=== PATIENT | male | born 1965 | race Caucasian/White ===

== ENCOUNTER 2017-04-17 05:49 | Day surgery (SDC) | payer OTHER ==
[~2017-04-17] VITALS: Ht 175.3 cm; Wt 86.4 kg
[2017-04-17] VITALS (7 sets, daily range): BP systolic 125–157; BP diastolic 82–95; PULSE 50–73; RESP 12–15; O2SAT 94–100
[~2017-04-17 05:49] MED LIST: ASPI-973 PO; ATOR20TA PO; Lactated Ringer's 1,000 ML IV SCH; Levofloxacin 500 mg/100 mL D5W IV SCH
[2017-04-17] MEDS ORDERED: Ondansetron 2 mg/mL 2 mL Inj ONE (05:50)
[2017-04-17] MEDS ORDERED: Propofol 10,000 mCg/mL 20 mL Inj ONE (05:50)
[2017-04-17] MEDS ORDERED: Glycopyrrolate 0.2 MG/ML 1mL Inj ONE (05:50)
[2017-04-17] MEDS ORDERED: Neostigmine 1 mg/mL 10 mL Inj ONE (05:50)
[2017-04-17] MEDS ORDERED: fentaNYL-PF 50 mCg/mL 2 mL Inj ONE (05:50)
[2017-04-17] MEDS ORDERED: Dexamethasone 4 mg/mL Inj ONE (05:50)
[2017-04-17] MEDS ORDERED: Rocuronium 10 mg/mL 5 mL Inj ONE (05:50)
[2017-04-17] MEDS ORDERED: levoFLOXacin 500 mg/100 mL D5W Premix IV ONE (05:56)
[2017-04-17] MEDS ORDERED: Lactated Ringer's 1,000 ML IV ONE (06:20)
[2017-04-17] MEDS ORDERED: Lactated Ringer's 500 ML IV PRN (07:23)
[2017-04-17] MEDS ORDERED: Lactated Ringer's 1,000 ML IV SCH (07:23)
--- NOTE | 2017-04-17 07:23 | PCM.HPANE ---
Patient Data Surgeon Admitting Provider: Attending Provider:Sylvia Velazquez MD Primary Care Physician:Pancho Vazquez DO Other Provider:Cleo Champion Anesthesia Reason for Visit Left Kidney Stone Ht/WT & BMI Height (Feet): 5 Height (Inches): 9.00 Weight (Kilograms): 86.400 Body Mass Index 28.00 Allergies Coded Allergies: No Known Allergies (Unverified , 04/15/17) Past Anesthesia History Anesthesia History: Denies:: Abnormal Airway, Anesthesia Reactions, Difficult Intubation, Fam Anesthesia Reaction, Fam Malignant Hypertherm, Malignant Hyperthermia Diabetes History Hx Diabetes?: No MRSA MRSA: Yes (2005) Medications Blood Thinner: Aspirin Last Dose Blood Thinner: Apr 08, 2017 Home Meds Incl Beta Noemi: No Reported Medications Atorvastatin (Lipitor)20 Mg [id number] Mg PO DAILY Ref 0 04/15/17 Aspirin 81 Mg [id number] Mg PO DAILY Ref 0 04/15/17 History History of ENT Problems?: No HEENT History: Denies:: Abnormal Airway Cataracts Difficult Intubation Dysphagia Glaucoma Hearing Problem Sinus Problem TMJ Denture Type: None Teeth Condition: Within Normal Limits Hx of Heart Problems?: No Cardiovascular History: Denies:: AICD Abdominal Aortic Aneurism Atrial Fibrillation Cardiac Surgery Chest Pain Congestive Heart Failure Coronary Artery Disease Edema Heart Murmur Hypertension Irregular Heartbeat Pacemaker Peripheral Vascular Rheumatic Fever Thrombophlebitis Valvular Heart Disease Hx of Respiratory Problem?: Yes Respiratory History: Positive for:: Use of C-PAP Machine Hx Neurologic Problems?: No Hx of GI Problems?: No Hx of Problems?: Yes Genitourinary History: Positive for:: Kidney Stones Denies:: HX of Hemodialysis Urinary Tract Infection HX of Peritoneal Dialysis: No Male Hx: Denies:: Prostate Problems (bhp) Scrotal Mass Testicular Surgery Skin History: Denies:: History Skin Disorders? Pressure Ulcers Hx Musculoskeletal Problems?: No Musculoskeletal History: Denies:: Back Injury Degenerative Joint Fibromyalgia Joint Replacement Musculoskeletal Trauma Myasthenia Gravis Osteoarthritis Rheumatoid Arthritis Systemic Lupus Hx of Psycho/Social Problems?: No Hx Surgeries?: Yes (COLONOSCOPY) Hx Any Other Health Problems?: Yes Other History: Denies:: Cancer Endocrine Disease Hospitalization Thyroid Disease History Blood Transfusions: Positive for:: Accept Blood Products? Denies:: Blood Transfusions Hx Diabetes: No Hx Alcohol Use: Yes (SOCIAL)Hx Substance Use: No Stop/Bang S-Snoring: Do You Snore Loudly: Yes T-Tired: feel tired, fatigued: No O-Obsered: Observed not breath: No P-Blood Pressure: treated: No B- Body Mass Index > 35 kg/m2: No A- Age over 50: Yes N- Neck Large Circumference: No G- Gender Male: Yes EDER Total Score: 3 EDER Risk Assessment: High Risk, =/>3 Yes EDER Category 4 OutPt Procedure: Yes Risk Assessment Category Category 1A: Patient has history of documented sleep apnea, and HAS NOT received any narcotic, sedative or anesthesia administration during this stay. Category 1B: Patient has history of documented sleep apnea, and HAS received any narcotic , sedative or anesthesia administration during this stay Category 2: Patient has SUSPECTED Obstructive Sleep Apnea, and HAS received any narcotic , sedative or anesthesia administration during this stay. Category 3: Patient has SUSPECTED Obstructive Sleep Apnea and HAS NOT received narcotic, sedative or anesthesia administration during this stay. Category 4: Outpatient in Procedural Areas with known sleep apnea or who screen positive for High Risk via the STOP/BANG questionnaire. Exam Exam Vital Signs Vital Signs Date Time Temp Pulse Resp B/P Pulse Ox O2 Delivery O2 Flow Rate FiO2 04/17/17 06:37 36.2 61 14 125/95 98 Room Air General Appearance: Alert HEENT/AIRWAY: MP 2, Neck Movement (from, 3 fb) Lungs: Clear to Auscultation Heart: Regular Rate/Rhythm Meds/Labs/Diagnostics Admission Meds Current Medications Lactated Ringer's (Lr) 1,000 ml @ ud STK-MED ONCE IV Last administered on t 06:20; Start 04/17/17 at 06:20; Stop 04/17/17 at 06:36; Status DC Plan Impression Patient chart reviewed, patient interviewed and anesthestic plan with risks, benefits, and alternatives discussed, and informed consent obtained. NPO per Anesth. Guidelines: Yes ASA Physical Status: ASA2 Mod Systemic Disease Anesthetic Plan: GA Bene/Risks/Altern/Consents: Yes HP Complete Prior to Induction: Yes Sanya Alcantar MD Apr 17, 2017 07:22
[2017-04-17] MEDS ORDERED: EPHEDrine Sulfate 50 mg/mL Inj IVPUSH PRN (07:25)
[2017-04-17] MEDS ORDERED: Ondansetron 2 mg/mL 2 mL Inj IVPUSH PRN (07:25)
[2017-04-17] MEDS ORDERED: MetoCLOpramide 5 mg/mL 2 mL Inj IVPUSH PRN (07:25)
[2017-04-17] MEDS ORDERED: fentaNYL-PF 50 mCg/mL 2 mL Inj IVPUSH PRN (07:25)
[2017-04-17] MEDS ORDERED: Phenylephrine 10,000 mCg/mL Inj IVPUSH PRN (07:25)
[2017-04-17] MEDS ORDERED: Dexamethasone 4 mg/mL Inj IVPUSH PRN (07:25)
[2017-04-17] MEDS ORDERED: HYDROmorphone 1 mg/mL Inj IVPUSH PRN (07:25)
[2017-04-17] MEDS ORDERED: Belladonna Alk-Opium 60 mg Rectal Suppository RECTAL ONE (08:51)
[2017-04-17] MEDS ORDERED: HYDROcodone-APAP 5-325 mg Tablet PO PRN (09:20)
[2017-04-17] MEDS ORDERED: Phenazopyridine 97.5 mg Tablet PO PRN (09:20)
[2017-04-17] MEDS ORDERED: Ondansetron 8 mg ODT Tablet PO PRN (09:20)
--- NOTE | 2017-04-17 09:47 | PCM.ANEP1 ---
Post Anesthesia PACU Phase 1 Assessment Vital Signs Vital Signs Date Time Temp Pulse Resp B/P Pulse Ox O2 Delivery O2 Flow Rate FiO2 04/17/17 09:42 36 57 14 157/82 94 Room Air 04/17/17 09:39 50 12 150/84 97 Room Air 04/17/17 09:33 61 13 132/88 96 Room Air 04/17/17 09:26 73 13 157/87 100 Simple Mask 10 04/17/17 09:22 36.3 55 15 146/88 100 Simple Mask 10 04/17/17 06:37 36.2 61 14 125/95 98 Room Air Anesthetic Administered: GA Level of Alertness: Awake, talking MENG's with Equal Strength: Yes Pain: No Nausea or Vomiting: No CV Function & Hydration Stable: Yes Airway Device: Oxygen Delivery: Simple Mask Lungs: Clear to Auscultation Dermatome Level: Full Sensation PACU Phase 2 Assessment Complications: No Follow up Care: N/A Patient Instructions Provided: N/A Sanya Alcantar MD Apr 17, 2017 09:47
--- NOTE | 2017-04-17 12:20 | DRSVH ---
PROCEDURE: X-RAY RETROGRADE UROGRAPHY INDICATIONS: LEFT KIDNEY STONE TECHNIQUE: 7 intra-operative images acquired by the Urology service. COMPARISON: Outside Film, CT, CT ABD PELVIS W CON, 02/12/2017, 13:03. FINDINGS: There is mild blunting of the upper pole calyces of the left kidney indicating mild hydron ephrosis. Roughly 1.5 cm intraluminal filling defect involves the left renal pelvis as well as sever al additional smaller intraluminal filling defects within the mid to lower pole calyx suspicious for retained stones. Opacified portions of the ureter also demonstrate several small intraluminal fillin g defects proximally. IMPRESSION: 1. Multiple intraluminal filling defects within the left renal collecting system and proximal ureter suspicious for retained stones. Correlate with real-time examination. 2. Ureteral stent placed. Dictated by: Frederick LIAO Interpreted: Brando Shine MD on 04/17/2017 at 9:35 Approved by: Sky Shine M.D. on 04/17/2017 at 12:18
--- NOTE | 2017-04-18 10:27 | OP ---
[address] [address] OPERATIVE REPORT PATIENT: GARRETT ACOSTA : 1965 MR#: [id number] ADMIT: 04/17/2017 JOB ID: [id number] DATE OF SURGERY: 04/17/2017 SURGEON: Sylvia Velazquez M.D. PROCEDURE: Cystoscopy with left-sided ureteroscopy, diagnostic left-sided retrograde pyelogram, left-sided ureteral balloon dilation, and left-sided double-J stent placement. ANESTHESIA: General. PREOPERATIVE DIAGNOSIS(ES): Left-sided renal calculi, obstructing solitary calyx with stenotic infundibulum. POSTOPERATIVE DIAGNOSIS(ES): Left-sided renal calculi, obstructing solitary calyx with stenotic infundibulum. INDICATIONS: The patient is a 51-year-old gentleman with a history of episodic mild, sometimes moderate left-sided low back pain. On evaluation found to have a collection of stones in a solitary calyx of the left kidney which appears to be obstructed by the stones which are present only in the solitary calyx. He was counseled about the unusual nature of his issue and risks/benefits of various treatment options. We had discussed shock wave lithotripsy, but feel likely that his infundibulum is narrowed, otherwise stones would have passed earlier on. Therefore, suspect that this would not result in good stone treatment. However, he was given the option of that versus attempted ureteroscopy with caveat that his ureter was undilated and we may not be able to reach the kidney safely at the first attempt. He elected ureteroscopy and was counseled appropriately. PROCEDURE IN DETAIL: After appropriate informed consent was obtained, the patient was brought to the operating room. Received IV antibiotics prior to onset of the procedure. SCDs were placed. Adequate general anesthesia induced. She was carefully placed in the dorsal position. All pressure points carefully padded. Cleaned, prepped, and draped in the usual sterile fashion. Rigid scope was introduced into the patient's bladder. Showed it to be normal in appearance and mildly high bladder neck. Left-sided ureteral orifice was cannulated and a retrograde pyelogram revealed a normal undilated caliber ureter with no filling defects and the location of the stone was easily seen prior to contrast and afterwards as well. We advanced a guidewire up into the kidney and then and a dual-lumen catheter over this. This did not pass due to the narrow nature of his distal ureter. We used a 15-[place] outer diameter balloon dilator to dilate up to the level of the SI joint. Still had a little bit more difficulty. However, once we got past this, there was a wider area of the ureter and we were able to get the access sheath up to near the ureteropelvic junction where there was again a narrower area. We did dilate this. There was some minimal contrast extravasation after dilation and we were able to successfully get up into the renal pelvis. We used a 14fr outer diameter sheath leaving the safety wire in place outside of the sheath. We could see the stone. However, given the need for dilation to get up and the minimal contrast extravasation, we elected not to go ahead and proceed and work on the stone given the need for ureteroscopy under positive pressure. We used a safety wire which was left in place throughout the course of the case to place an 8-[place] by 26 cm double-J stent over the wire through the cystoscope into good position with a curl in the renal pelvis and a curl in patient's bladder. The patient's bladder itself was drained. Some clots were evacuated from the ureteral dilation of the distal portion of it. The bladder was drained. He tolerated this well, was awakened, taken in stable condition to the postanesthesia care unit. [place]
[2017-04-18] MEDS ORDERED: HYDR-4003 PO (17:14)
[2017-04-18] MEDS ORDERED: PHEN-684 PO (17:14)
== END 2017-04-17 23:59 | disposition home or self-care (01) ==
LOC: SAS 05:49
PROVIDERS: ATTEND Urology
DX: N20.0 Calculus of kidney (principal); N28.89 Other specified disorders of kidney and ureter; Z79.82 Long term (current) use of aspirin; Z86.14 Personal history of Methicillin resistant Staphylococcus aureus infection
CPT/HCPCS: 52332; 52343; 74420; C2617; J1100; J1885; J2250; J2405; J2710; J3010; J7120; Q9967

== ENCOUNTER → 2017-04-26 | Day surgery (SDC) | payer OTHER ==
[~2017-04-26] VITALS: Ht 175.3 cm; Wt 83.6 kg
[2017-04-26] VITALS (12 sets, daily range): BP systolic 116–145; BP diastolic 77–98; PULSE 66–100; RESP 10–18; O2SAT 95–99
[~2017-04-26] MED LIST changes: +Belladonna Alk-Opium 60 mg Rectal Suppository RECTAL ONE; +Dexamethasone 4 mg/mL Inj IVPUSH PRN; +Dexamethasone 4 mg/mL Inj ONE; +EPHEDrine Sulfate 50 mg/mL Inj IVPUSH PRN; +Glycopyrrolate 0.2 MG/ML 1mL Inj ONE; +HYDR-4003 PO; +HYDROcodone-APAP 5-325 mg Tablet PO PRN; +HYDROmorphone 1 mg/mL Inj IVPUSH PRN; +Ketamine 10 mg/mL 20 mL Inj ONE; +Labetalol 5 mg/mL 4 mL Inj IV PRN; +Lactated Ringer's 500 ML IV PRN; +Levofloxacin 500 mg/100 mL D5W IV ONE; -Levofloxacin 500 mg/100 mL D5W IV SCH; +MetoCLOpramide 5 mg/mL 2 mL Inj IVPUSH PRN; +Neostigmine 1 mg/mL 5 mL Inj ONE; +Ondansetron 2 mg/mL 2 mL Inj IVPUSH PRN; +Ondansetron 2 mg/mL 2 mL Inj ONE; +Ondansetron 8 mg ODT Tablet PO PRN; +PHEN-684 PO; +Phenazopyridine 97.5 mg Tablet PO PRN; +Phenylephrine 10,000 mCg/mL Inj IVPUSH PRN; +Propofol 10 mg/mL 20 mL Inj ONE; +Succinylcholine Chloride 20 mg/mL 5 mL Inj ONE; +fentaNYL-PF 50 mCg/mL 2 mL Inj ONE; +hydrALAZINE 20 mg/mL Inj IVPUSH PRN
[2017-04-26] MEDS: Lactated Ringer's 1,000 ML IV SCH ×2 (05:24→07:27)
--- NOTE | 2017-04-26 07:18 | PCM.HPANE ---
Patient Data Date of Service: Apr 26, 2017 Surgeon Admitting Provider: Attending Provider:Sylvia Velazquez MD Primary Care Physician:Kylee Other Provider:Cleo Champion Anesthesia Reason for Visit Left Kidney Stone Ht/WT & BMI Height (Feet): 5 Height (Inches): 9.00 Weight (Kilograms): 83.600 Body Mass Index 27.00 Allergies Coded Allergies: No Known Allergies (Unverified , 04/18/17) Past Anesthesia History Anesthesia History: Denies:: Abnormal Airway, Anesthesia Reactions, Difficult Intubation, Fam Anesthesia Reaction, Fam Malignant Hypertherm, Malignant Hyperthermia Diabetes History Hx Diabetes?: No MRSA MRSA: Yes (2005) Medications Blood Thinner: Aspirin Home Meds Incl Beta Noemi: No Reported Medications Phenazopyridine (Pyridium)200 Mg [id number] Mg PO TID PRN For Pain Ref 0 04/18/17 Hydrocodone-Acetaminophen 5-325 mg 1 Each Tablet1 Tablet PO Q4H PRN For Pain Ref 0 04/18/17 Atorvastatin (Lipitor)20 Mg [id number] Mg PO DAILY Ref 0 04/15/17 Aspirin 81 Mg [id number] Mg PO DAILY Ref 0 04/15/17 History History of ENT Problems?: No HEENT History: Denies:: Abnormal Airway Cataracts Difficult Intubation Dysphagia Hearing Problem Sinus Problem TMJ Denture Type: None Teeth Condition: Within Normal Limits Hx of Heart Problems?: No Cardiovascular History: Denies:: AICD Abdominal Aortic Aneurism Atrial Fibrillation Cardiac Surgery Chest Pain Congestive Heart Failure Edema Heart Murmur Hypertension Irregular Heartbeat Pacemaker Rheumatic Fever Thrombophlebitis Valvular Heart Disease Hx of Respiratory Problem?: Yes Respiratory History: Positive for:: Use of C-PAP Machine Hx Neurologic Problems?: No Neurological History: Denies:: CVA Multiple Sclerosis Parkinson's Disease Seizures Hx of GI Problems?: No Hx of Problems?: Yes Genitourinary History: Positive for:: Kidney Stones (left stone current admission problem- surg here 04/17) Denies:: HX of Hemodialysis Urinary Tract Infection HX of Peritoneal Dialysis: No Male Hx: Denies:: Prostate Problems (bhp) Scrotal Mass Testicular Surgery Skin History: Denies:: History Skin Disorders? Pressure Ulcers Hx Musculoskeletal Problems?: No Musculoskeletal History: Denies:: Back Injury Degenerative Joint Joint Replacement Musculoskeletal Trauma Systemic Lupus Hx of Psycho/Social Problems?: No Hx Surgeries?: Yes (COLONOSCOPY, cysto stent) Hx Any Other Health Problems?: Yes Other History: Denies:: Cancer Endocrine Disease Hospitalization Thyroid Disease History Blood Transfusions: Denies:: Blood Transfusions Hx Diabetes: No Hx Alcohol Use: Yes (SOCIAL)Hx Substance Use: No Smoking Status: Never Smoker Stop/Bang S-Snoring: Do You Snore Loudly: Yes T-Tired: feel tired, fatigued: No O-Obsered: Observed not breath: No P-Blood Pressure: treated: No B- Body Mass Index > 35 kg/m2: No A- Age over 50: Yes N- Neck Large Circumference: No G- Gender Male: Yes EDER Total Score: 3 EDER Risk Assessment: Low Risk, <3 Yes Risk Assessment Category Category 1A: Patient has history of documented sleep apnea, and HAS NOT received any narcotic, sedative or anesthesia administration during this stay. Category 1B: Patient has history of documented sleep apnea, and HAS received any narcotic , sedative or anesthesia administration during this stay Category 2: Patient has SUSPECTED Obstructive Sleep Apnea, and HAS received any narcotic , sedative or anesthesia administration during this stay. Category 3: Patient has SUSPECTED Obstructive Sleep Apnea and HAS NOT received narcotic, sedative or anesthesia administration during this stay. Category 4: Outpatient in Procedural Areas with known sleep apnea or who screen positive for High Risk via the STOP/BANG questionnaire. Exam Exam Vital Signs Vital Signs Date Time Temp Pulse Resp B/P Pulse Ox O2 Delivery O2 Flow Rate FiO2 04/26/17 06:12 36.1 78 12 126/78 97 Room Air General Appearance: Alert, Oriented X3, Cooperative, No Acute Distress HEENT/AIRWAY: MP 2 Lungs: Clear to Auscultation, Normal Air Movement Heart: Exam Unremarkable, Regular Rate/Rhythm, No Murmurs/Rubs/Gallops Meds/Labs/Diagnostics Admission Meds Current Medications Lactated Ringer's (Lr) 1,000 ml @ 120 mls/hr Q8H20M IV Last administered on t 05:24; Start 04/26/17 at 05:00; Stop 04/26/17 at 13:19 Plan Impression Patient chart reviewed, patient interviewed and anesthestic plan with risks, benefits, and alternatives discussed, and informed consent obtained. NPO per Anesth. Guidelines: Yes ASA Physical Status: ASA2 Mod Systemic Disease Anesthetic Plan: GA Bene/Risks/Altern/Consents: Yes HP Complete Prior to Induction: Yes Johnathan Mckinley MD Apr 26, 2017 07:18
[2017-04-26] MEDS: fentaNYL-PF 50 mCg/mL 2 mL Inj IVPUSH PRN ×2 (09:29→09:38)
--- NOTE | 2017-04-26 11:24 | PCM.ANEP1 ---
Post Anesthesia PACU Phase 1 Assessment Date of Service: Apr 26, 2017 Vital Signs Vital Signs Date Time Temp Pulse Resp B/P Pulse Ox O2 Delivery O2 Flow Rate FiO2 04/26/17 10:59 66 18 116/79 98 Room Air 04/26/17 10:16 72 18 134/77 96 Room Air 04/26/17 09:51 81 16 131/83 95 Room Air 04/26/17 09:40 36.3 83 12 130/96 95 Room Air 04/26/17 09:35 82 16 136/95 96 Room Air 04/26/17 09:30 82 14 125/88 95 Room Air 04/26/17 09:25 85 11 142/98 97 Room Air 04/26/17 09:20 36.2 87 18 126/84 98 Simple Mask 04/26/17 09:15 83 12 123/95 99 Simple Mask 8 04/26/17 09:10 100 18 145/87 97 Simple Mask 8 04/26/17 09:05 36.2 91 10 140/95 96 Simple Mask 8 04/26/17 06:12 36.1 78 12 126/78 97 Room Air Anesthetic Administered: GA Level of Alertness: Awake, talking Pain: No Nausea or Vomiting: No CV Function & Hydration Stable: Yes Airway Device: Oralpharangeal Airway Oxygen Delivery: Room Air Lungs: Clear to Auscultation, Normal Air Movement PACU Phase 2 Assessment Complications: No Follow up Care: No Patient Instructions Provided: N/A Johnathan Mckinley MD Apr 26, 2017 11:24
--- NOTE | 2017-04-27 14:52 | OP ---
[address] [address] OPERATIVE REPORT PATIENT: GARRETT ACOSTA : 1965 MR#: [id number] ADMIT: 04/26/2017 JOB ID: [id number] DATE OF SURGERY: 04/26/2017 SURGEON: Sylvia Velazquez M.D. PROCEDURE NAME: 1. Left-sided ureteroscopy, laser lithotripsy, basket stone extraction, double-J stent removal and replacement. 2. Left-sided retrograde pyelogram. Difficult case secondary location of stone and obstructed calyx of the upper pole kidney. PREOPERATIVE DIAGNOSIS(ES): Nephrolithiasis with obstructed upper pole calyx filled with stone. POSTOPERATIVE DIAGNOSIS(ES): Nephrolithiasis with obstructed upper pole calyx filled with stone. INDICATIONS: The patient is a 51-year-old gentleman with a history of nephrolithiasis, evaluation revealing him to have a stone lodged in an obstructed upper pole calyx with some segmental hydronephrosis of his kidney and the obstructed calyx having undergone ureteroscopy on April 17, 2017. Ureter sufficiently nondilated enough making manipulation of the stone itself very difficult. Thus he was stented at the time with an 8-[place] by 26 cm double-J stent and brought back for definitive treatment of his left-sided renal calculus. PROCEDURE IN DETAIL: After appropriate informed consent was obtained, the patient was brought to the operating room. He received IV antibiotics prior to onset of the procedure. His urine was clear prior to the procedure. SCDs were placed. Adequate general anesthesia induced. She was carefully placed in the dorsal lithotomy position. All pressure points carefully padded. Cleaned, prepped, and draped in the usual sterile fashion. The scope was introduced into the patient's bladder. There were some reactive changes from the stent. However, otherwise the urine was quite clear. The end of the stent itself was grasped and brought to the meatus. The wire was passed up through the stent into good position in the renal pelvis. The stone once again was readily visible on fluoroscopy. We did a retrograde pyelogram which revealed the ureter to be apparently somewhat more dilated than previously. He had a very narrowed area distally which was difficult to dilate even with a 15-[place] balloon and some narrowing up at the ureteropelvic junction as well. We then used a dual-lumen catheter, placed a second wire, and then a 14-[place] outer diameter ureteral access sheath was advanced. There was resistance felt at the area of previous narrowing. However, the sheath passed ultimately into good position. We then removed the wire over which this access sheath was passed the left the second wire outside as a safety wire throughout the entire course of the case. We then used the digital ureteroscope and advanced this up into the patient's renal pelvis. We were able to identify the leading edge of the stone which was obstructing and lodged in this dilated upper pole calyx and used a 273 micron laser fiber to work on this. The area was somewhat narrowed given the position of the stone making the case itself somewhat difficult. However, we were able ultimately to get very good treatment with the vast majority of stone pulverized to dust. Some direct customer service representative fragments removed out. Remaining fragments in the dependent portion of the dilated calyx were 1-2 mm only in diameter. We removed what we could. At the termination, the calyx itself was quite clear. The infundibulum was opened. There was minimal dust left in the two sides of the dilated calyx. There was minimal bleeding. We cleared the ureter while removing the access sheath. This looked good and there was no further stone. We then backloaded the safety wire through the cystoscope and advanced a 6-[place] x 26 cm double-J stent over the wire under fluoroscopic and direct visual guidance into good position in the patient's kidney. The string was left long outside of the patient's body in anticipation of removal of the stent the following week in clinic. We had used a retrograde pyelogram numerous times throughout the course of the case also to identify the location of the stone and the pelvocaliceal system.
[2017-04-30 11:13] LABS: Stone Color Tan (.)
== END | disposition home or self-care (01) ==
LOC: SAS 05:43
PROVIDERS: ATTEND Urology
DX: N20.0 Calculus of kidney (principal); N13.8 Other obstructive and reflux uropathy; Z86.14 Personal history of Methicillin resistant Staphylococcus aureus infection; Z79.82 Long term (current) use of aspirin
CPT/HCPCS: 52356; 74420; 82360; C2617; J0330; J1100; J1885; J2250; J2405; J2704; J2710; J3010; J7120; Q9967